=== PATIENT | female | born 1980 | race Caucasian/White ===

== ENCOUNTER 2018-06-03 16:29 | Emergency (ER) | payer OTHER, MEDICAID ==
[~2018-06-03] VITALS: Ht 170.2 cm; Wt 86.7 kg
[~2018-06-03 16:29] MED LIST: ACETAMINOPHEN-1 EAC1 PO; ALPRAZOLAM ER1 MG; AMOXICILLIN500 M1 PO; ANAPROX; ATIVAN1 M1 PO; BACITRAYCIN PLU28 GM TP; BACTRIM DS TAB1 EACH PO; CLARITIN10 MG PO; ERYTHROMYCIN E3.5 G1 OPHTHALMIC; FLEXERIL PO; HYDROCODONE-APA1 TA1 PO; IBUPROFEN 600600 M1 PO; KEFLEX500 MG PO; LIDOCAINE 22 %/30 GM TOP; LIDOCAINE VISC100 M1 MM; NAPROSYN500 MG PO; NOHOMEMEDICATIONS; NORCO 5-325 TA1 EAC1 PO; NORCO 5-325 TA1 EACH PO; ONDANSETRON HCL4 M2 PO; OSELB75 PO; PENICILLIN V P500 MG PO; PHENERGAN 25 MG25 M1 PO; PREDNISONE 20 M20 M1 PO; ROBAXIN500 MG PO; TOPAMAX 25 MG T25 M1 PO; VISTARIL 25 MG25 M1 OR; XANAX 0.5 MG0.5 M1 PO; XANAX 0.5 MG0.5 MG PO; ZOFRAN 4 MG ORAL4 M1 DIS
[2018-06-03] MEDS ORDERED: XANAX 0.5 MG0.5 MG PO (16:38)
[2018-06-03] MEDS ORDERED: TRAZODONE HCL100 MG PO (16:39)
[2018-06-03] MEDS ORDERED: ZANAFLEX2 MG PO (16:41)
[2018-06-03] MEDS ORDERED: NORCO 5-325 TA1 EAC1 PO (17:42)
[2018-06-03 17:57] VITALS: BP 111/55
== END 2018-06-03 17:58 | disposition home or self-care (01) ==
LOC: M.ERS 16:29
DX: S82.145A Nondisplaced bicondylar fracture of left tibia, initial encounter for closed fracture (principal); F41.9 Anxiety disorder, unspecified; F17.210 Nicotine dependence, cigarettes, uncomplicated; Z88.6 Allergy status to analgesic agent; Y04.8XXA Assault by other bodily force, initial encounter; Y93.89 Activity, other specified; Y92.89 Other specified places as the place of occurrence of the external cause; Y99.8 Other external cause status

== ENCOUNTER 2018-06-08 15:12 | Emergency (ER) | payer OTHER, MEDICAID ==
[~2018-06-08] VITALS: Ht 170.2 cm; Wt 79.4 kg
[~2018-06-08 15:12] MED LIST changes: +TRAZODONE HCL100 MG PO; +ZANAFLEX2 MG PO
[2018-06-08] MEDS ORDERED: MOBIC15 MG PO (15:23)
[2018-06-08] MEDS ORDERED: NORCO 5-325 TA1 EACH PO (15:42)
[2018-06-08 16:20] VITALS: BP 125/66
== END 2018-06-08 16:21 | disposition home or self-care (01) ==
LOC: M.ERS 15:12
DX: S82.132A Displaced fracture of medial condyle of left tibia, initial encounter for closed fracture (principal); F41.9 Anxiety disorder, unspecified; F17.210 Nicotine dependence, cigarettes, uncomplicated; Z88.6 Allergy status to analgesic agent; X58.XXXA Exposure to other specified factors, initial encounter; Y93.89 Activity, other specified; Y92.89 Other specified places as the place of occurrence of the external cause; Y99.8 Other external cause status

== ENCOUNTER 2018-07-06 18:04 | Emergency (ER) | payer OTHER, MEDICAID ==
[~2018-07-06] VITALS: Ht 170.2 cm; Wt 81.7 kg
[~2018-07-06 18:04] MED LIST changes: +MOBIC15 MG PO
[2018-07-06] MEDS ORDERED: PERCOCET PO (18:20)
[2018-07-06] MEDS ORDERED: IBUPROFEN 800800 M1 PO (18:20)
[2018-07-06] MEDS ORDERED: ONDANSETRON HCL4 M2 PO (18:20)
[2018-07-06] MEDS ORDERED: XANAX1 MG PO (18:20)
[2018-07-06] MEDS ORDERED: ASPERCREME76.5 GM TOP (18:53)
[2018-07-06 19:09] VITALS: BP 110/59
== END 2018-07-06 19:11 | disposition home or self-care (01) ==
LOC: M.ERS 18:04
DX: M25.562 Pain in left knee (principal); R22.42 Localized swelling, mass and lump, left lower limb; F41.9 Anxiety disorder, unspecified; F17.210 Nicotine dependence, cigarettes, uncomplicated; Z88.6 Allergy status to analgesic agent

== ENCOUNTER 2020-07-21 23:12 | Emergency (ER) | payer OTHER, MEDICAID ==
[~2020-07-21] VITALS: Ht 170.2 cm; Wt 68.0 kg
[~2020-07-21 23:12] MED LIST changes: +ASPERCREME76.5 GM TOP; +IBUPROFEN 800800 M1 PO; +PERCOCET PO; +XANAX1 MG PO
[2020-07-21] MEDS ORDERED: MELOXICAM7.5 MG PO (23:28)
[2020-07-21] MEDS ORDERED: TRAZODONE HCL100 MG PO (23:29)
[2020-07-22] MEDS ORDERED: LORCET 5-325 M1 EACH PO (00:07)
[2020-07-22 00:25] VITALS: BP 126/88
== END 2020-07-22 00:26 | disposition home or self-care (01) ==
LOC: M.ERS 23:12
DX: S93.401A Sprain of unspecified ligament of right ankle, initial encounter (principal); F17.210 Nicotine dependence, cigarettes, uncomplicated; Z79.899 Other long term (current) drug therapy; Z88.6 Allergy status to analgesic agent; W22.8XXA Striking against or struck by other objects, initial encounter; Y93.89 Activity, other specified; Y92.89 Other specified places as the place of occurrence of the external cause; Y99.8 Other external cause status